=== PATIENT | male | born 1965 ===

== ENCOUNTER → 2020-10-31 | Outpatient (CLI) | payer OTHER ==
[2020-11-01 01:08] LABS: CALCIUM PTH 10.2 mg/dL (8.7-10.2); CREATININE PTH 1.18 mg/dL (0.76-1.27); PTH INTACT 31 pg/mL (15-65)
== END ==
LOC: SPEC 10:53
PROVIDERS: ATTEND Preventive Medicine Occupational Medicine
DX: E21.3 Hyperparathyroidism, unspecified (principal)
CPT/HCPCS: 36415; 83970